=== PATIENT | male | born 1975 | race Two or more races ===

== ENCOUNTER 2018-10-07 17:23 | Emergency (ER) | payer OTHER ==
[~2018-10-07] VITALS: Ht 190.5 cm; Wt 126.1 kg
--- NOTE | 2018-10-07 17:55 | NUR ---
ED Nurse Note: pt walked in c/o left foot pain started today, pt states it feels like ants crawling and hot. no swelling/edema/wound noted at this time, CMS intact, will cont monitor. pt ambulates w/ steady gait.
--- NOTE | 2018-10-07 18:00 | NUR ---
ED Nurse Note:blood was sent to labs
[2018-10-07 18:25] LABS: BASOPHILS % (AUTO) 1.4 % (0.0-2.0); EOSINOPHILS % (AUTO) 2.4 % (0.0-3.0); HEMATOCRIT 43.9 % (42.0-52.0); HEMOGLOBIN 15.4 G/DL (14.2-18.0); LYMPHOCYTES % (AUTO) 25.5 % (20.0-45.0); MEAN CORPUSCULAR VOLUME 87 FL (80-99); NEUTROPHILS % (AUTO) 61.7 % (45.0-75.0); PLATELET COUNT 260 K/UL (150-450); RED BLOOD COUNT 5.03 M/UL (4.70-6.10); WHITE BLOOD COUNT 10.2 K/UL (4.8-10.8)
[2018-10-07 18:27] LABS: ANION GAP 10 mmol/L (5-15); BLOOD UREA NITROGEN 11 mg/dL (7-18); CALCIUM 9.3 MG/DL (8.5-10.1); CARBON DIOXIDE 28 MMOL/L (21-32); CHLORIDE 102 MMOL/L (98-107); CREATININE 0.9 MG/DL (0.55-1.30); SODIUM 140 MMOL/L (136-145)
[2018-10-07 18:31] LABS: ALANINE AMINOTRANSFERASE 52 U/L (12-78); ALBUMIN/GLOBULIN RATIO 1.1 (1.0-2.7); ALKALINE PHOSPHATASE 146 U/L (46-116); ASPARTATE AMINO TRANSFERASE 26 U/L (15-37); BILIRUBIN,TOTAL 0.8 MG/DL (0.2-1.0)
[2018-10-07 18:47] VITALS: BP 158/94
--- NOTE | 2018-10-07 19:00 | NUR ---
ED Nurse Note: ultrasound at the bedside.
--- NOTE | 2018-10-07 19:50 | Emergency Room Report ---
History of Present Illness General Chief Complaint: Pain Source: Patient Present Illness HPI 43-year-old male patient presents ER brought in by ambulance complaining of bilateral lower leg pain. Reports symptoms began yesterday in his right leg and then began today in his left leg. Denies injury or accident. Reports feels a "tingling and pain" sensation in both legs. Reports pain with ambulation. Denies acute injury or accident. Denies swelling or erythema. Denies history of clots. Reports history of IA several years ago, states he had stents put in and currently takes a blood thinner medication. Also takes statin medication, states he was recently switch to a new statin medication. Denies fever, chest pain, shortness of breath. Patient reports concern for "clot" so he came to the ER. Denies other aggravating or relieving factors. Allergies: Coded Allergies: No Known Allergies (Unverified , 10/07/18) Patient History Past Medical History: see triage record Reviewed Nursing Documentation: PMH: Agreed; PSxH: Agreed Nursing Documentation-PMH Past Medical History: No History, Except For Hx Cardiac Problems: Yes - STENT x 3 2015 Hx Hypertension: Yes Review of Systems All Other Systems: negative except mentioned in HPI Physical Exam Vital Signs Date Time Temp Pulse Resp B/P (MAP) Pulse Ox O2 Delivery O2 Flow Rate FiO2 10/07/18 17:31 98.6 86 14 158/94 99 Room Air Sp02 EP Interpretation: reviewed, normal General Appearance: well appearing, no apparent distress, alert, GCS 15, non- toxic Head: normocephalic, atraumatic Eyes: bilateral eye normal inspection, bilateral eye PERRL ENT: hearing grossly normal, normal pharynx, no angioedema, normal voice, uvula midline, moist mucus membranes Neck: full range of motion Respiratory: lungs clear, normal breath sounds, no rhonchi, no respiratory distress, no accessory muscle use, no wheezing, speaking full sentences Cardiovascular #1: regular rate, rhythm, no edema, normal capillary refill Cardiovascular #2: 2+ dorsalis pedis (R), 2+ dorsalis pedis (L) Musculoskeletal: back normal, digits/nails normal, gait/station normal, normal range of motion, non-tender, no calf tenderness, Eliana's Sign negative, other - NVI Neurologic: alert, oriented x3, responsive, motor strength/tone normal, sensory intact Psychiatric: mood/affect normal Skin: no rash, warm/dry, well hydrated, normal turgor, other - Varicose veins noted Medical Decision Making PA Attestation Dr. Connelly is my supervising Physician whom patient management has been discussed with. Diagnostic Impression: Primary Impression: Bilateral leg pain Additional Impression: Varicose vein of leg ER Course Pt. presents to the ED c/o bilateral lower leg pain. Ddx considered but are not limited to DVT, varicose vein, myositis, peripheral vascular disease, cellulitis, rhabdomyolysis. Vital signs: are WNL, pt. is afebrile ER COURSE: Venous duplex ultrasound bilateral lower extremity was negative for DVT. Discuss results with the patient. Provided patient with copy of results. Instructed patient to followup with PCP and discuss results of report with patient, discuss need for further treatment and referral. CBC and CMP unremarkable, troponin negative Creatinine kinase within normal limits, low suspicion for myositis or rhabdomyolysis Varicose vein noted on physical exam. Advised patient follow-up with primary care provider discussed referral to vascular specialist for possible peripheral vascular disease evaluation and imaging. Advised patient to take Tylenol for pain symptoms. ER precautions given. DISCHARGE: At this time pt is stable for d/c to home. Patient is resting comfortably, in no acute distress, nontoxic appearing, talking without difficulty. Patient to take medications as instructed Will provide with patient care instructions and any necessary prescriptions. Care plan and follow-up instructions provided. Patient instructed to follow-up with primary care provider in 3 - 5 days. Patient questions asked and answered. Patient reports understanding and agreement to treatment plan. ER precautions given. Patient instructed to return to ER immediately for any new or worsening of symptoms including but not limited to increasing SOB, persistent fever, chest pain, intractable vomiting. - Please note that this Emergency Department Report was dictated using [employer] tailer technology software, occasionally this can lead to erroneous entry secondary to interpretation by the dictation equipment. Labs Test 10/07/18 18:03 White Blood Count 10.2 K/UL (4.8-10.8) Red Blood Count 5.03 M/UL (4.70-6.10) Hemoglobin 15.4 G/DL (14.2-18.0) Hematocrit 43.9 % (42.0-52.0) Mean Corpuscular Volume 87 FL (80-99) Mean Corpuscular Hemoglobin 30.6 PG (27.0-31.0) Mean Corpuscular Hemoglobin Concent 35.0 G/DL (32.0-36.0) Red Cell Distribution Width 12.0 % (11.6-14.8) Platelet Count 260 K/UL (150-450) Mean Platelet Volume 6.3 FL (6.5-10.1) Neutrophils (%) (Auto) 61.7 % (45.0-75.0) Lymphocytes (%) (Auto) 25.5 % (20.0-45.0) Monocytes (%) (Auto) 9.0 % (1.0-10.0) Eosinophils (%) (Auto) 2.4 % (0.0-3.0) Basophils (%) (Auto) 1.4 % (0.0-2.0) Sodium Level 140 MMOL/L (136-145) Potassium Level 4.0 MMOL/L (3.5-5.1) Chloride Level 102 MMOL/L (98-107) Carbon Dioxide Level 28 MMOL/L (21-32) Anion Gap 10 mmol/L (5-15) Blood Urea Nitrogen 11 mg/dL (7-18) Creatinine 0.9 MG/DL (0.55-1.30) Estimat Glomerular Filtration Rate > 60 mL/min (>60) Glucose Level 121 MG/DL (74-106) Calcium Level 9.3 MG/DL (8.5-10.1) Total Bilirubin 0.8 MG/DL (0.2-1.0) Aspartate Amino Transf (AST/SGOT) 26 U/L (15-37) Alanine Aminotransferase (ALT/SGPT) 52 U/L (12-78) Alkaline Phosphatase 146 U/L (46-116) Total Creatine Kinase 136 U/L (26-308) Troponin I 0.000 ng/mL (0.000-0.056) Total Protein 7.8 G/DL (6.4-8.2) Albumin 4.0 G/DL (3.4-5.0) Globulin 3.8 g/dL Albumin/Globulin Ratio 1.1 (1.0-2.7) CT/MRI/US Diagnostic Results CT/MRI/US Diagnostic Results : Imaging Test Ordered: Venous duplex US bilateral lower extremities Impression Negative Last Vital Signs Date Time Temp Pulse Resp B/P (MAP) Pulse Ox O2 Delivery O2 Flow Rate FiO2 10/07/18 18:47 98.6 86 14 158/94 99 Room Air Status: improved Disposition: HOME, SELF-CARE Condition: Stable Scripts Acetaminophen* (TYLENOL EXTRA STRENGTH*) 500 Mg Tablet 500 MG ORAL Q8H PRN for Prn Headache/Temp > 101, #30 TAB 0 Refills Prov: Dennys Man 10/07/18 Referrals: NOT CHOSEN IPA/MD,REFERRING (PCP) Patient Instructions: Intermittent Claudication, Leg Cramps, Varicose Veins Additional Instructions: Followup with primary care provider in 3 -5 days. Discussed referral to vascular specialist. Take Tylenol for pain symptoms. Take medications as directed. Patient questions asked and answered. ER precautions given, patient instructed to return to ER immediately for any new or worsening of symptoms. Dennys Man Oct 07, 2018 19:50
--- NOTE | 2018-10-07 19:52 | Diagnostic Imaging Report ---
History: PAIN Exam: US VENOUS BILATERAL LOWER EXTREMITIES Comparison: None available FINDINGS: Deep venous system of the right and left lower extremity appears patent and compressible with spontaneous and augmented flow without intraluminal echoes. IMPRESSION: No evidence of DVT within the right or left lower extremity.
[2018-10-07 20:32] LABS: CREATINE KINASE 136 U/L (26-308)
[2018-10-07] MEDS ORDERED: TYLENOL EXTRA500 MG ORAL (20:44)
[2018-10-07 20:57] VITALS: BP 148/87
--- NOTE | 2018-10-07 20:58 | NUR ---
ED Nurse Note: pt cleared to be d/c per ERMD, pt d/c and aftercare instruction provided w/ prescription, pt education done via discussion and handout, pt advised to follow up with pcp or return to ED if sx worsen or new sx develop, pt verbalized understanding and agrees with plan, vss, ambulatory w/steady gait, accompanied by , left w/ all belongings, ID band removed, IV d/c.
== END 2018-10-07 20:59 | disposition home or self-care (01) ==
LOC: EDBD 17:23 → EMR 17:44
DX: I83.813 Varicose veins of bilateral lower extremities with pain (principal); I10 Essential (primary) hypertension
CPT/HCPCS: 36415; 80053; 82550; 84484; 85025; 93970; 99284